=== PATIENT | female | born 1990 | race Caucasian/White ===

== ENCOUNTER 2020-01-06 12:31 | Emergency (ER) | payer MEDICAID ==
[~2020-01-06] VITALS: Ht 157.5 cm; Wt 54.4 kg
[2020-01-06 12:43] VITALS: BP 100/72
--- NOTE | 2020-01-06 13:46 | NUR ---
TERESA with c/o feeling anxious stating of increased BP when standing up. awaiting MD for heidi
--- NOTE | 2020-01-06 14:25 | NUR ---
SEEN BY MD WITH NEW ORDERS. NOTED
--- NOTE | 2020-01-06 15:06 | NUR ---
COVID TEST AND XRAY DONE. PT REFUSED FLU SWAB TEST. AWARE
== END 2020-01-06 15:40 | disposition home or self-care (01) ==
LOC: ER 12:34
DX: J06.9 Acute upper respiratory infection, unspecified (principal); R50.9 Fever, unspecified; Z20.828 Contact with and (suspected) exposure to other viral communicable diseases; Z86.19 Personal history of other infectious and parasitic diseases
CPT/HCPCS: 71045; 99284; C9803; U0003